=== PATIENT | male | born 1970 | race Caucasian/White ===

== ENCOUNTER 2024-01-25 19:11 | Emergency (ER) | payer OTHER, SELFPAY ==
[2024-01-25] VITALS (17 sets, daily range): BP systolic 118–140; BP diastolic 82–89; PULSE 67–77; RESP 10–25; TEMP 36.4; O2SAT 93–98
--- NOTE | ~2024-01-25 | XR_ITS ---
EXAMINATION: XR chest 2V 01/25/2024 19:53 INDICATION: Left-sided chest pain PROCEDURE: 2 view chest COMPARISON: No prior studies for comparison. FINDINGS: The lungs are clear. The cardiomediastinal silhouette is within normal limits. There are no pleural effusions. There is no pneumothorax suspected. IMPRESSION: 1: NO ACUTE CARDIOPULMONARY DISEASE. Reviewed, dictated and finalized at location A.
--- NOTE | 2024-01-25 19:15 | ECG_ITS ---
Test Date: 2024-01-25 19:21:26 Measurements Intervals [place] Rate: 72 P: 30 [place]: 149 QRS: -52 QRSD: 100 T: 13 QT: 378 QTc: 415 Interpretive Statements SINUS RHYTHM LEFT ANTERIOR FASCICULAR BLOCK [QRS AXIS <= -45, QR IN I, RS IN II] No previous ECG available for comparison Electronically Signed On 02-10-2024 10:35:11 CDT by Van Bedoya M.D.
--- NOTE | 2024-01-25 19:17 | ED.CHESTPAIN ---
HPI - Chest Pain General Chief Complaint: Chest Pain Stated Complaint: Chest Pain Time Seen by Provider: 01/25/24 19:15 Source: patient Mode of arrival: ambulatory Limitations: no limitations History of Present Illness HPI narrative: Patient is a 53-year-old male with some left-sided chest pain. He has recurrent GERD issues and similar chest pain but now it is a pressure instead of a sharp pain. No associated nausea vomiting or shortness of breath. His daughter told him to come and get evaluation. No cardiac history. He only takes medication for GERD. MD complaint: chest pain Onset (ago): day(s) (3) Timing of current episode: episodic Prior episodes: Yes Onset: during rest, during exertion, after eating and other ( Patient had similar chest pain yesterday while using his left arm and making the muscle work of the chest working on a car) Pain location: left chest Pain radiation: none Severity: mild Pain scale (0-10): 2 Quality: heaviness and sharp Relieving factors: antacids, movement and rest Exacerbating factors: exertion, eating, palpation and movement Treatment prior to arrival: none Risk Factors Coronary artery disease risk factors: none Thoracic aortic dissection risk factors: none Related Data Allergies Allergy/AdvReac Type Severity Reaction Status Date / Time No Known Allergies Allergy Verified 01/25/24 21:02 Review of Systems Review of Systems: All systems reviewed & are unremarkable except as noted in HPI and below Constitutional: Constitutional: Reports no additional constitutional complaints Eyes: Eyes: Reports no additional eye complaints ENT: Reports system reviewed and no additional complaints, except as documented Cardiovascular: Cardiovascular: Reports no additional cardiovascular complaints Respiratory: Respiratory: Reports no additional respiratory complaints Gastrointestinal: Gastrointestinal: Reports no additional gastrointestinal complaints Genitourinary: Genitourinary: Reports no additional male genitourinary complaints Musculoskeletal: Musculoskeletal: Reports no additional musculoskeletal complaints Integumentary/Breasts: Skin/Breast: Reports system reviewed and no additional complaints, except as docu Neurologic: Reports system reviewed and no additional complaints, except as documented Psychiatric: Psychiatric: Reports no additional psychiatric complaints Endocrine: Endocrine: Reports no additional endocrine complaints Hematologic/Lymphatic: Hematologic/Lymphatic: Reports no additional hematologic/lymphatic complaints Allergic/Immunologic: Allergic/Immunologic: Reports no additional allergic/immunologic complaints Exam Const: General: healthy appearing Nutritional Appearance: well nourished Orientation/consciousness: patient oriented x3 HENMT: Head: normal to inspection Ears: external ears normal Face/Nose/Sinus: Normal external nose present Eyes: Conjunctivae: conjunctivae normal Pupils: Equal, round and reactive pupils present EOM: EOMs intact bilaterally Neck: Neck: normal visual inspection Chest: Chest palpation & inspection: normal inspection of the chest Resp: Effort & Inspection: normal respiratory effort and not labored Auscultation: clear to auscultation bilaterally Cardio: Rate: regular rate Rhythm: regular rhythm Heart sounds: no murmurs Other: tender left chest to palpation and reproducible chest pain GI: Inspection: non-distended GI Palp: Yes Soft to palpation and No Tenderness to palpation present (GI) Auscultation: normal bowel sounds : General: Yes bladder normal to palpation Back/Spine/Pelvis: Back: no CVA tenderness Skin: General skin exam: normal color Rashes: no rashes Wounds: no wounds Neuro: General: patient oriented x3 Cranial nerves: Yes Nystagmus not present Speech: normal speech Extrem: General: normal to inspection Psych: Mental Status: mental status grossly normal Affect: normal affect Attitude: cooperativ
--- NOTE | 2024-01-25 20:10 | PC.NURSE ---
PHLEBOTOMY AT BEDSIDE FOR LAB DRAW. PATIENT RESTING ON STRETCHER, CALL LIGHT WITHIN REACH. RN MONITORING.
[2024-01-25 20:19] LABS: Basophils Absolute Auto 0.06 K/mm3 (0.00-0.10); Basophils Percent Auto 0.7 % (0.0-1.0); Eosinophils Absolute Auto 0.25 K/mm3 (0.02-0.50); Eosinophils Percent Auto 3.1 % (1.0-6.0); Hematocrit 45.9 % (40.0-54.0); Hemoglobin 15.7 g/dL (14.0-18.0); Immature Granulocyte Absolute 0.01 K/mm3 (0.00-0.00); Immature Granulocyte Percent A 0.1 % (0.0-0.0); Lymphocytes Absolute Auto 4.04 K/mm3 (1.10-4.50); Lymphocytes Percent Auto 49.4 % (18.0-42.0); Mean Corpuscular HGB Conc 34.2 g/dL (32-36); Mean Corpuscular Hemoglobin 33.1 pg (27.0-31.0); Mean Corpuscular Volume 96.8 fL (78.0-102.0); Mean Platelet Volume 9.1 fl (8.7-11.0); Monocytes Absolute Auto 0.64 K/mm3 (0.10-0.90); Monocytes Percent Auto 7.8 % (2.0-11.0); Neutrophils Absolute Auto 3.17 K/mm3 (1.70-7.20); Neutrophils Percent Auto 38.9 % (50.0-70.0); Platelet Count Result 209 K/mm3 (150-420); Red Blood Count 4.74 M/mm3 (4.70-6.10); Red Cell Distribution Width 12.2 % (11.6-14.4); White Blood Count 8.2 K/mm3 (4.8-10.8)
--- NOTE | 2024-01-25 20:32 | PC.NURSE ---
RN AT BEDSIDE FOR PATIENT UPDATE, AWARE WE ARE AWAITING RESULTS OF BLOOD WORK. PATIENT DENIES CURRENT NEEDS, CALL LIGHT WITHIN REACH, STATES PAIN IS TOLERABLE AT THIS TIME, DENIES NEEDING ANYTHING FOR PAIN MANAGEMENT. RN MONITORING. VSS.
[2024-01-25 20:33] LABS: D Dimer 0.22 mg/L (0.19-0.50); INR 0.9; Partial Thromboplastin Time 24.8 Sec (23.9-30.70); Prothrombin Time 10.2 Seconds (9.50-12.1)
[2024-01-25 20:36] LABS: Alanine Aminotransferase 38 U/L (16-63); Albumin Level 3.5 g/dL (3.4-5.0); Alkaline Phosphatase 130 U/L (46-116); Anion Gap 9 mmol/L (4-12); Aspartate Amino Transferase 24 U/L (15-37); Bilirubin,Total 0.2 mg/dL (0.00-1.00); Blood Urea Nitrogen 14 mg/dL (7-18); Calcium 9.1 mg/dL (8.5-10.1); Carbon Dioxide 27 mmol/L (21-32); Chloride 106 mmol/L (98-108); Estimated CRCL calculation 74 ml/min; Estimated Glomerular Filt Rate > 60; Glucose 100 mg/dL (70-99); Lipase 37 U/L (16-77); Osmolality Calculated 294 mOsm/kg (285-295); Potassium 3.9 mmol/L (3.5-5.1); Sodium 142 mmol/L (136-145); Total Protein 6.5 g/dL (6.4-8.2)
[2024-01-25 20:37] LABS: Troponin I < 4.0 ng/L (0.00-60.4)
--- NOTE | 2024-01-25 21:00 | PC.NURSE ---
DR CESPEDES, ERP, AT PATIENT BEDSIDE AT THIS TIME, PROVIDING PATIENT UPDATE REGARDING RESULTS AND PLAN.
== END 2024-01-25 21:14 | disposition home or self-care (01) ==
PROVIDERS: Emergency Provider Emergency Medicine; PCP Family Medicine
DX: R07.89 Other chest pain (principal); M94.0 Chondrocostal junction syndrome [Tietze]; K21.9 Gastro-esophageal reflux disease without esophagitis
CPT/HCPCS: 36415; 71046; 80053; 83690; 84484; 85025; 85380; 85610; 85730; 93005; 99284